=== PATIENT | female | born 1985 | race Caucasian/White ===

== ENCOUNTER 2023-05-01 05:35 | Inpatient (IN) | payer OTHER ==
[~2023-05-01] VITALS: Ht 162.6 cm; Wt 75.8 kg
[2023-05-01 06:20] LABS: HEMOGLOBIN 12.5 g/dL (12.0-18.0); MCHC 35.8 g/dl (30-36); MCV 92.1 fl (81-99); RBC 3.8 M/ul (4.3-5.7)
[2023-05-01 06:23] VITALS: BP 107/62
[2023-05-01 07:12] LABS: ABO A; ANTIBODY SCREEN NEGATIVE; RH POSITIVE
[2023-05-01 07:16] LABS: INFLUENZA B NAA NEGATIVE (NEGATIVE); RESPIRATORY SYNCYTIAL VIR NAA NEGATIVE (NEGATIVE)
[2023-05-01 07:32] LABS: AMPHETAMINES, URINE NEGATIVE (NEGATIVE); BARBITURATES, URINE NEGATIVE (NEGATIVE); BENZODIAZEPINE, URINE NEGATIVE (NEGATIVE); BUPRENORPHINE, URINE NEGATIVE (NEGATIVE); CANNABINOID, URINE NEGATIVE (NEGATIVE); COCAINE, URINE NEGATIVE (NEGATIVE); ECSTASY, URINE NEGATIVE (NEGATIVE); FENTANYL, URINE NEGATIVE (NEGATIVE); METHADONE, URINE NEGATIVE (NEGATIVE); OPIATES, URINE NEGATIVE (NEGATIVE); OXYCODONE, URINE NEGATIVE (NEGATIVE); PHENCYCLIDINE, URINE NEGATIVE (NEGATIVE)
[2023-05-02 05:39] LABS: HEMATOCRIT 32.4 % (35.0-50.0); HEMOGLOBIN 11.3 g/dL (12.0-18.0); MCH 32.6 (27-36); MCHC 34.8 g/dl (30-36); MCV 93.7 fl (81-99); RBC 3.46 M/ul (4.3-5.7); RDW 13.3 (10.5-15.0)
--- NOTE | 2023-05-02 13:02 | PR ---
[facility] [address] [place], [place] [address] Signed PP Progress Notes Datetime Report Generated by CPN: 05/02/2023 13:02 SUBJECTIVE: [id number] Pain: Within Normal Limits Nausea/Vomiting: Denies Flatus: Yes Bowel Movement: No Vital Signs: [id number] Vital Signs: Reviewed; Within Normal Limits Cardiovascular: Normal Respiratory: Normal Abdomen/Uterus: Normal Lochia: Normal Vulva/Perineum: Not Done Breasts: Not Done CVA Tenderness: Normal Extremities: Normal Incision: Not Applicable Progress: Normal Exam Comments: Fundus firm U-2 nontender IMPRESSION/PLAN/PROCEDURES: [id number] Impression: Normal Progression Plan: Discharge Progress Notes: Pt seen and examined. Doing well. No concerns. Ambulating, voiding, and tolerating full diet. Pain and lochia minimal. . Desires d/c home. Reviewed d/c instructions and medicaitons. All questions answered Signing Physician: Swati Alexander DO Copies: ~ *Electronically Signed* 05/02/23 1319 SWATI ALEXANDER (BETTY) DO PATIENT NAME: DANIIMADISON PROGRESS NOTE DATE OF : 89 PHYSICIAN: SWATI ALEXANDER (BETTY) DO RPT #: [id number] REPORT IS CONFIDENTIAL AND NOT TO BE RELEASED WITHOUT AUTHORIZATION
== END 2023-05-02 13:20 | disposition home or self-care (01) | DRG 807 ==
LOC: FBC 05:35
PROVIDERS: ADMIT Obstetrics & Gynecology; ATTEND Obstetrics & Gynecology
PROC: 10E0XZZ Delivery of Products of Conception, External Approach (ICD-10-PCS; principal; 2023-05-01)
PROC: 3E0R3BZ Introduction of Anesthetic Agent into Spinal Canal, Percutaneous Approach (ICD-10-PCS; 2023-05-01)
PROC: 00HU33Z Insertion of Infusion Device into Spinal Canal, Percutaneous Approach (ICD-10-PCS; 2023-05-01)
PROC: 10907ZC Drainage of Amniotic Fluid, Therapeutic from Products of Conception, Via Natural or Artificial Opening (ICD-10-PCS; 2023-05-01)
PROC: 0HQ9XZZ Repair Perineum Skin, External Approach (ICD-10-PCS; 2023-05-01)
DX: O69.1XX0 Labor and delivery complicated by cord around neck, with compression, not applicable or unspecified (principal); Z37.0 Single live birth; O70.0 First degree perineal laceration during delivery; Z3A.39 39 weeks gestation of pregnancy; Z87.891 Personal history of nicotine dependence
CPT/HCPCS: 01960; 36415; 80307; 85027; 86850; 86900; 86901; 87502; A9270; C9803; J2590; J7121; U0002